=== PATIENT | male | born 1995 | race American Indian/Alaskan Native ===

== ENCOUNTER 2019-04-26 20:40 | Emergency (ER) | payer OTHER, SELFPAY ==
[2019-04-26 20:43] VITALS: BP 136/77; PULSE 110; RESP 15; TEMP 37.1; O2SAT 100; BMI 21.6
--- NOTE | 2019-04-26 21:38 | ED.RN ---
PER [employer] MARIAELENA FROM [facility] WILL NEED TO BE CONTACTED IN ORDER TO DETERMINE WHETHER OR NOT PT IS TO BE TESTED. MARIAELENA INFORMS THIS RN THAT HE WILL HAVE TO CALL TOMORROW AT 8 AM WHEN THE OFFICE IS OPEN. THIS RN INFORMED [employer] THAT THE COMPANY WILL NEED TO CONTACT [facility] TO DECIDE IF PT NEEDS DRUG TESTED AND FOLLOW UP WITH [facility] APPOINTED COMPANY. ER WILL NOT BE CALLING [facility]. STILL UNKNOWN IF PT IS A TEST.
--- NOTE | 2019-04-26 22:30 | CT_ITS ---
STUDY: CT BRAIN WITHOUT CONTRAST REASON FOR EXAM: Male, 23 years old. Pain RADIATION DOSAGE (If Supplied By Facility): CTDIvol = ( 44.99 ) mGy, DLP = ( 846.73 ) mGycm TECHNIQUE: Transaxial CT imaging of the brain was performed without administration of intravenous contrast material. Individualized dose optimization techniques were used for this CT. COMPARISON: No relevant priors. FINDINGS: Normal soft tissue structures. Normal calvarium. Normal size ventricles and extra-axial spaces for the patient's age. Normal white matter tracts of the cerebral hemispheres. Normal basal ganglia and thalami. Normal brainstem. Normal cerebellum. There is no intracranial hemorrhage. There are no findings of an acute ischemic infarction. Mucosal thickening of the maxillary sinuses. CT/Brain/Head without Contrast IMPRESSION: Normal unenhanced CT scan of the brain. Maxillary sinus disease. Electronically Signed: Lanre Medley DO at 23:08 EST Tel [phone], Service support ,
--- NOTE | 2019-04-26 22:33 | ED.DCSUM_ITS ---
- ER Visit Summary Date of Service: 04/26/19 Chief Complaint: Headache History of Present Illness: The patient is a 23 M who presents with a headache that began today. Patient states he was hit in the head by some boxes at work 2 days ago. Patient states the pain is over the right side of his head. Patient describes it as sharp and throbbing. Patient states it is worse with high- pitched noises. Patient states she has been taking ibuprofen with some improvement. Patient denies any loss of consciousness. Patient denies any paresthesias or weakness. Patient admits to some nausea but denies any vomiting. Physical Examination: Vital signs are stable. Patient is afebrile. Patient is in no acute distress. Cranial nerves II through XII are intact. Strength is 5/5 bilateral knee upper and lower extremities. There are no sensory deficits. There is some mild tenderness over the right parietal area. There is no bony crepitance or step-off. There is no edema or ecchymosis noted. Pupils are equal, round, and reactive to light bilaterally. Extraocular muscles are int act. Oral mucosa is pink and moist. Neck is supple. Trachea is midline. There is no JVD. Heart was regular rate and rhythm. Lungs are clear and equal bilaterally. Abdomen is soft and nontender. Test Results: CT scan of the brain was obtained and was normal. Emergency Department Course and Treatment: Patient was resting comfortably here in the emergency department. Patient was advised that this is most likely a mild head injury. Patient was given head injury instructions. Patient was instructed to follow-up with his primary care physician in 5 to 7 days. Patient was instructed to take Tylenol as needed for headache. Patient understood and was agreeable with the plan. All questions were answered. Disposition: Discharge home Impression: Head contusion This note was generated with [employer] dictation software. It may contain incorrect words, spelling, and punctuation that were not noted in review of the chart prior to signing ED Disposition - Plan for ED Patient: Disposition: Home or Assisted Living Diagnosis: Mild concussion Instructions: HEAD INJURY, No Wake-Up (Adult) Referrals: Care Physician,No Primary [Primary Care Provider] - Obi Olsen DO [NON CLINICAL AFFILIATE] - 5-7 Days
== END 2019-04-26 23:58 | disposition home or self-care (01) ==
PROVIDERS: Emergency Provider Emergency Medicine
DX: S00.93XA Contusion of unspecified part of head, initial encounter (principal); W20.8XXA Other cause of strike by thrown, projected or falling object, initial encounter; Y93.89 Activity, other specified; Y92.89 Other specified places as the place of occurrence of the external cause; Y99.0 Civilian activity done for income or pay
CPT/HCPCS: 70450; 99283

== ENCOUNTER 2019-05-02 17:11 | Emergency (ER) | payer OTHER, SELFPAY ==
[2019-05-02 17:12] VITALS: BP 144/78; PULSE 77; RESP 16; TEMP 36.6; O2SAT 99; BMI 21.4
--- NOTE | 2019-05-02 18:23 | ED.VISSUMM ---
- ER Visit Summary Date of Service: 05/02/19 Chief Complaint: [Difficulty with memory and head injury] History of Present Illness: The patient is a 23 M [presents to the emergency department stating that he had a head injury on 26 April and was seen in the emergency department. Patient was at work and had some jugs of water fall onto the back of his head. There was no loss of consciousness. Patient had a CT scan of his brain that was unremarkable. Patient states that he is noticed that he has had some increased difficulty remembering things. Patient had an episode 2 days after the head injury where he was in the shower and felt somewhat lightheaded and felt like he might pass out but did not pass out. Patient denies any headaches. He has had no vomiting. Patient is scheduled to go back to work in 24 hours.] Physical Examination: [HEENT-PERRLA, EOMI. Cranial nerves II through XII grossly intact. TMs clear. Mucous membranes moist. No adenopathy. Cardiovascular-regular rate and rhythm without murmur or ectopy Lungs-clear to auscultation, chest wall stable without crepitus or subcu emphysema Abdomen-normoactive bowel sounds, soft, nontender, no rebound or rigidity, no peritoneal signs. Neuro olvz-csaoft-veah and heel braun testing within normal limits, negative Romberg, negative pronator drift, fundi benign Extremities-intact ?4, normal range of motion, normal pulses, atraumatic] Test Results: [None indicated] Emergency Department Course and Treatment: [] Treatment Plan: [Patient has a follow-up appointment with primary care physician and he is to keep that. Patient looks well I do not feel any further imaging is indicated. I suspect patient likely has a postconcussive type syndrome.] Disposition: [Discharged home in stable condition. Patient advised not to drive if feeling dizzy.] Impression: [Postconcussive syndrome] This note was generated with [employer] dictation software. It may contain incorrect words, spelling, and punctuation that were not noted in review of the chart prior to signing ED Disposition - Plan for ED Patient: Referrals: Care Physician,No Primary [Primary Care Provider] -
--- NOTE | 2019-05-02 18:26 | ED.DEP ---
ED Disposition - Plan for ED Patient: Instructions: CONCUSSION, No Wake Up Referrals: Care Physician,No Primary [Primary Care Provider] - 3-5 Days
== END 2019-05-02 18:39 | disposition home or self-care (01) ==
LOC: ED 18:34
PROVIDERS: Emergency Provider Emergency Medicine
DX: F07.81 Postconcussional syndrome (principal)
CPT/HCPCS: 99282